=== PATIENT | male | born 1950 | race Caucasian/White ===

== ENCOUNTER → 2021-12-19 | Day surgery (SDC) | payer MEDICARE, OTHER ==
[~2021-12-19] VITALS: Ht 185.4 cm; Wt 103.0 kg
[~2021-12-19] MED LIST: ASCORBIC ACID500 MG PO; ASPIRIN81 MG PO; ATORVASTATIN CA40 MG PO; COQ-1030 MG PO; HYDROCHLOROTH12.5 MG PO; METOPROLOL SUCC25 MG PO; PRILOSEC20 MG PO; TAMSULOSIN HCL0.4 MG PO; VITAMIN B-121000 MC1 PO; VITAMIN D31 ML PO
[2021-12-19 09:59] LABS: HCT 47.6 % (42.0-52.0); HGB 16.6 g/dl (13.2-18.0); MCH 30.7 pg (25.0-31.0); MCHC 34.9 g/dL (32.0-36.0); MCV 88.1 fL (78.0-100.0); MPV 11.3 fL (6.0-9.5); RBC 5.4 M/uL (4.70-6.00); RDW 12.5 % (11.5-14.0); WBC 7.4 K/uL (4.0-10.5)
[2021-12-19 10:06] LABS: ALBUMIN 4.2 g/dL (3.4-5.0); BILIRUBIN - TOTAL 1.2 mg/dL (0.2-1.0); BUN/CREAT RATIO (CALC) 15.6 RATIO; CREATININE 0.9 mg/dL (0.67-1.17); GLOBULIN (CALCULATION) 3.2 g/dL; TOTAL PROTEIN 7.4 g/dL (6.4-8.2)
== END | disposition home or self-care (01) ==
LOC: FAS 08:47
PROVIDERS: Surgery
DX: Z12.11 Encounter for screening for malignant neoplasm of colon (principal); D12.5 Benign neoplasm of sigmoid colon; I10 Essential (primary) hypertension; E78.5 Hyperlipidemia, unspecified; Z88.5 Allergy status to narcotic agent; Z79.82 Long term (current) use of aspirin; Z79.899 Other long term (current) drug therapy
CPT/HCPCS: 36415; 80053; J1610; J2704; J7120